=== PATIENT | female | born 1960 | race Caucasian/White ===

== ENCOUNTER → 2019-02-02 | Outpatient (CLI) | payer MEDICARE ==
[~2019-02-02] MED LIST: ALPR.5 PO; AZAT50 PO; CHOL10002; CHOL10002 PO; CYCL10 PO; FOLI400 PO; HYDACE5 PO; LEVSOD50 PO; LOPE2C PO; LOPE2EL PO; MULVITB&C PO; Multivitamin1 EAC1 PO; SERT50 PO; TRAM50 PO; VARE1 PO; Vitamin B Comple1 EA PO
[2019-02-03 03:20] LABS: Adenovirus F 40/41 Not Detected (NOT DETECT); Astrovirus Not Detected (NOT DETECT); Campylobacter Sp Not Detected (NOT DETECT); Cryptosporidium Not Detected (NOT DETECT); Cyclospora Cayetanensis Not Detected (NOT DETECT); E. Coli O157 Not Detected (NOT DETECT); Entamoeba Histolytica Not Detected (NOT DETECT); Enteroaggregative E. coli-EAEC Not Detected (NOT DETECT); Enteropathogenic E. coli-EPEC Not Detected (NOT DETECT); Enterotoxigenic E. coli-ETEC Not Detected (NOT DETECT); Giardia Lamblia Not Detected (NOT DETECT); Norovirus GI/GII Not Detected (NOT DETECT); Plesiomonas Shigelloides Not Detected (NOT DETECT); Rotavirus A Not Detected (NOT DETECT); Salmonella Sp Not Detected (NOT DETECT); Sapovirus Not Detected (NOT DETECT); Shiga Toxin-prod E. coli-STEC Not Detected (NOT DETECT); Shigella/Enteroin E. coli-EIEC Not Detected (NOT DETECT); Vibrio Cholerae Not Detected (NOT DETECT); Vibrio Sp Not Detected (NOT DETECT); Yersinia Enterocolitica Not Detected (NOT DETECT)
== END | disposition home or self-care (01) ==
LOC: LAB 14:07 → LAB SHORT 14:07 → LAB FUT 02-02 15:00
PROVIDERS: Internal Medicine Gastroenterology
DX: R19.7 Diarrhea, unspecified (principal); R10.84 Generalized abdominal pain
CPT/HCPCS: 0097U; 83993

== ENCOUNTER 2023-02-25 16:41 | Observation (INO) | payer MEDICARE ==
[~2023-02-25] VITALS: Ht 170.2 cm; Wt 48.1 kg
[2023-02-25] MEDS ORDERED: ALPRAZOLAM0.5 M1 PO (17:15)
[2023-02-25] MEDS ORDERED: Ventolin/Prove6.7 GM INH (17:15)
[2023-02-25] MEDS ORDERED: IMURAN50 MG PO (17:15)
[2023-02-25] MEDS ORDERED: EUTHYROX50 MC1 PO (17:15)
[2023-02-25 17:28] LABS: BASOPHILS ABSOLUTE AUTO 0.02 K/mm3 (0.00-0.23); BASOPHILS PERCENT AUTO 1 % (0-2); EOSINOPHILS ABSOLUTE AUTO 0.02 K/mm3 (0.00-0.68); EOSINOPHILS PERCENT AUTO 1 % (0-6); Hematocrit 41.9 % (33.0-51.0); Hemoglobin 13.8 g/dL (11.5-16.0); IMMATURE GRAN ABSOLUTE AUTO 0.02 K/mm3 (0.00-0.10); IMMATURE GRAN PERCENT AUTO 1 % (0-1); LYMPHOCYTES ABSOLUTE AUTO 0.51 K/mm3 (0.84-5.20); LYMPHOCYTES PERCENT AUTO 12 % (21-46); MONOCYTES ABSOLUTE AUTO 0.34 K/mm3 (0.16-1.47); MONOCYTES PERCENT AUTO 8 % (4-13); Mean Corpuscular HGB Conc 32.9 g/dL (31.5-36.5); Mean Corpuscular Volume 103 fL (80-100); Mean Platelet Volume 8.6 fL (9.1-12.4); NEUTROPHILS ABSOLUTE AUTO 3.39 K/mm3 (1.96-9.15); NEUTROPHILS PERCENT AUTO 79 % (41-73); Platelet Count 248 K/mm3 (150-400); RDW Coefficient Variation 15.2 % (11.7-14.2); RDW Standard Deviation 58.6 fL (35.1-46.3); Red Blood Cell Count 4.06 M/mm3 (3.80-5.20)
[2023-02-25 17:55] LABS: Acetaminophen, Random <2.0 ug/mL (10.0-30.0); Alanine Aminotransfer (ALT/SGP 19 U/L (12-78); Albumin, Blood 3.4 g/dL (3.4-5.0); Albumin/Globulin Ratio 1.2 (0.8-1.8); Alk Phos 55 U/L (50-136); Anion Gap 6 mmol/L (6-16); Aspartate Aminotrans (AST/SGOT 21 U/L (12-37); Bilirubin, Total 0.5 mg/dL (0.1-1.0); Blood Urea Nitrogen 4 mg/dL (8-24); Bun/Creatinine Ratio 5.6 (12.0-20.0); CO2, Blood 27 mmol/L (21-32); Calcium, Blood 8.7 mg/dL (8.5-10.1); Chloride, Blood 108 mmol/L (98-108); Creatinine, Blood 0.71 mg/dL (0.40-1.00); Ethanol (Alcohol), Blood, Med 8 mg/dL; Globulin, Blood 2.8 g/dL (2.2-4.0); Glomerular Filtration Rate 97 (60-); Glucose, Blood 82 mg/dL (70-99); Potassium, Blood 4.1 mmol/L (3.5-5.5); Salicylate <1.7 mg/dL (2.8-20.0); Sodium, Blood 141 mmol/L (136-145); Total Protein, Blood 6.2 g/dL (6.4-8.2)
[2023-02-25 23:44] LABS: Source, Urine Clean Catch
[2023-02-25 23:49] LABS: Bilirubin, Urine Neg (Neg); Blood, Urine Neg (Neg); Glucose Qualitative, Urine Neg (Neg); Ketones, Urine 2+ (Neg); Leukocyte Esterase, Urine 1+ (Neg); Nitrite, Urine Neg (Neg); Protein, Urine Neg (Neg); Specific Gravity, Urine 1.015 (1.003-1.022); Urobilinogen, Urine NORM (Normal); pH, Urine 6.5 (5.0-8.0)
[2023-02-26 00:09] LABS: Appearance, Urine Clear (Clear); Color, Urine Yellow (P-Yellow)
[2023-02-26 00:10] LABS: Bacteria Few /hpf; Mucus Light (0-Heavy); Red Blood Cells, Urine 0-2 /hpf (0-2); Squamous Epithelial Cells Few /hpf (Few); White Blood Cells, Urine 0-2 /hpf (0-5)
[2023-02-26 00:19] LABS: U Amphetamine Screen Not Detected; U Barbituate Screen Not Detected; U Benzodiazapine Screen DETECTED; U Buprenorphine Screen Not Detected; U Cannabinoids Screen DETECTED; U Cocaine Screen Not Detected; U Methadone Screen Not Detected; U Methamphetamine Screen Not Detected; U Opiates Screen Not Detected; U Oxycodone Screen Not Detected; U Phencyclidine Screen Not Detected
[2023-02-26 00:33] LABS: Base Excess Venous 5.1 mmol/L; Bicarbonate Venous 27.8 mmol/L (24.0-30.0); PCO2 Venous 49.3 mmHg (38-42); pH Blood Venous 7.39 (7.34-7.37)
[2023-02-26 01:23] LABS: Influenza A, PCR NEGATIVE (NEGATIVE); Influenza B, PCR NEGATIVE (NEGATIVE); Resp Syncytial Virus, PCR NEGATIVE (NEGATIVE); SARS-Cov-2 (COVID-19) PCR, MMC NEGATIVE (NEGATIVE)
[2023-02-26 02:31] LABS: Albumin, Blood 3.3 g/dL (3.4-5.0); Albumin/Globulin Ratio 1.1 (0.8-1.8); Bilirubin, Total 0.6 mg/dL (0.1-1.0); Bun/Creatinine Ratio 12.1 (12.0-20.0); Calcium, Blood 8.4 mg/dL (8.5-10.1); Creatinine, Blood 0.58 mg/dL (0.40-1.00); Potassium, Blood 3.8 mmol/L (3.5-5.5); Total Protein, Blood 6.3 g/dL (6.4-8.2)
[2023-02-26 05:59] VITALS: BP 124/71
[2023-02-26 06:15] VITALS: BP 118/78
--- NOTE | 2023-02-26 07:01 | NUR ---
ARRIVAL TO ICU PT ARRIVED TO ICU 3 AT 0550 VIA ED BED AND TRANSFERED OVER VIA SLIDE SHEET. SHE IS HERE FOR SUICIDAL IDEATION. PT IS ALERT/ORIENTED X2-3; SHE BECAME VERY DEFENSIVE WHEN READING PT HER CIVIL RIGHTS; SHE BECAME PARANOID AND STATES THAT SHE WANTS TO GO HOME. WHEN THIS RN ASKED WHAT HAPPENED YESTERDAY SHE STATED THIS: "I WAS DRIVING HOME AND ON OUR DRIVEWAY WHICH IS TWO MILES LONG. I PULLED OVER TO TAKE IN THE VIEW AND DECIDED TO TAKE A FEW EXTRA PILLS. I WAS NOT TRYING TO HURT MYSELF. 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 HR 80'S. SBP 120'S. LR INFUSING AT 75ML/HR. WILL REPORT TO AM RN WHEN AVAILABLE.
[2023-02-26 08:00] VITALS: BP 120/78
--- NOTE | 2023-02-26 08:15 | NUR ---
DURING BEDSIDE REPORT PT'S ARRIVES, PT BEGINS ASKING HOW LONG SHE HAS TO STAY, WHERE IS HER BATHROOM, WHERE ARE HER BELONGINGS? DISPLAYS AGITATION REGARDING NOT KNOWING WHERE HER THINGS ARE. REVIEW OF ED RECORD SHOWS THEY ARE LOCKED IN ROOM IN ED. CALL TO ED TO OBTAIN. PT STATES SHE WILL NOT SPEAK WITH ANY PSYCHOLOGIST UNTIL HER BELONGINS ARE FOUND AND BROUGHT TO HER. A CALL PLACED TO SECURITY TO LET THEM KNOW THE SITUATION. PT CALMS WHEN HER THINGS ARE BROUGHT IN. SHE AND ARE REMINDED THAT HER BELONGINGS ARE NOT ALLOWED WITH HER AT THIS TIME. QUESTIONS ANSWERED. SHE IS ON 3L/NC AND SATS 95%. SHE IS TOLD SHE IS GOING FOR A SCAN AND SHE EXPRESSES HER GLADNESS SHE HAS BEEN COUGHING. TRANSFERED TO WHEEL CHAIR/SITTER IN ATTENDANCE.
[2023-02-26 11:22] VITALS: BP 135/81
--- NOTE | 2023-02-26 11:34 | NUR ---
"Spiritual Care | Nurse Request Pt. is sitting up in bed and welcomes my visit. Spouse is present at bedside. Facilitated a life review and considered the family circuumstances that led the Pt. to have to come to the hospital. Listened with empathy and interest. Pt. displays evidence of wanting spiritual care and is an active participant in her life review. Prayed with Pt. Pt. verbalized gratitude for the spiritual care visit. Will remain available to Pt. and spouse."
[2023-02-26 12:00] VITALS: BP 132/95
[2023-02-26] MEDS ORDERED: XARELTO20 MG PO ×2 (13:01→13:02)
--- NOTE | 2023-02-26 14:00 | NUR ---
DISCONTINUED THE HOLD, THEN DISCONTINUED THE SUICIDE WATCH, THEN AGREED FOR HER TO BE ABLE TO GO HOME. AGREED THAT THE PATIENT WAS STABLE TO GO HOME ON HER MEDICATION. SHE WAS EDUCATED ABOUT THE RISKS OF ANTI COAGULANT MEDICATION. SHE WAS GIVEN THE DISCHARGE INSTRUCTIONS WITH ADDITIONAL INFORMATION REGARDING AC USE, SAFETY PLAN, SEEKING HELP FOR FEELING SUICIDAL, PULMONARY EMBOLI, AND HER NEW MEDICATIONS. FOLDER WAS LABELED AND PHONE NUMBER PROVIDED. SHE WAS ALLOWED TO DRESS INDEPENDENTLY WITH HER 'S ASSIST AFTER REMOVAL OF THE IV FROM THE LEFT A/C. SHE WAS DISCHARGED VIA WC TO THE VEHICLE INICH HER WAS DRIVING.
== END 2023-02-26 13:45 | disposition home or self-care (01) ==
LOC: ER 16:41 → ERHOLD 16:42 → ICUE 16:42
PROVIDERS: Emergency Medicine; Student in an Organized Health Care Education/Training Program; ADMIT Internal Medicine
DX: T42.4X2A Poisoning by benzodiazepines, intentional self-harm, initial encounter (principal); J96.01 Acute respiratory failure with hypoxia; G92.8 Other toxic encephalopathy; F43.23 Adjustment disorder with mixed anxiety and depressed mood; F10.90 Alcohol use, unspecified, uncomplicated; K50.90 Crohn's disease, unspecified, without complications; F17.210 Nicotine dependence, cigarettes, uncomplicated; Z88.0 Allergy status to penicillin; Z88.8 Allergy status to other drugs, medicaments and biological substances; Z79.899 Other long term (current) drug therapy
CPT/HCPCS: 0241U; 36415; 71046; 71260; 80053; 81001; 82803; 83880; 84484; 85025; 85379; 87086; 93005; 93010; 94640; 94664; 99285-25; A9270; G0378; G0480; J7120; Q9967